=== PATIENT | male | born 2000 | race Caucasian/White ===

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

== ENCOUNTER 2022-03-07 01:17 | Emergency (ER) | payer SELFPAY ==
[2022-03-07 01:19] VITALS: BP 147/87; PULSE 102; RESP 17; TEMP 36.8; O2SAT 99; BMI 21.9
--- NOTE | 2022-03-07 01:42 | HMH.EDWNDL ---
ED Disposition Clinical Impression: Scalp laceration Qualifiers: Encounter type: initial encounter Qualified Code(s): S01.01XA - Laceration without foreign body of scalp, initial encounter Disposition: Home, Self-Care Condition on Discharge: Good Instructions: DI for Laceration Repair Additional Instructions: suture out 7-8 days and recheck if needed Referrals: Provider,Referral, [Primary Care Provider] - - Critical Care Critical Care Time: No Attestation: On 03/07/22, the high probability of a clinically significant, sudden or life threatening deterioration of the following system(s) required my full and direct attention, intervention and personal management. The time I documented below is in addition to time spent performing reported procedures but includes the following listed in this critical care notation. Medical Decision Making - Medical Records Medical records reviewed: Yes: I reviewed the patient's medical records. - Benny Inquiry Pt receiving controlled substance: No Vital Signs: 03/07/22 01:19 Temperature 98.3 F Temperature Source Oral Pulse Rate [Right] 102 H Respiratory Rate 17 Blood Pressure [Right Arm] 147/87 H Blood Pressure Mean [Right Arm] 107 Blood Pressure Source [Right Arm] Automatic Cuff 02 Sat by Pulse Oximetry 99 Oxygen Delivery Method Room Air Orders (Tests/Meds): ED MEDICATIONS Discontinued Medications Generic Name Dose Route Start Last Admin Trade Name Freq PRN Reason Stop Dose Admin Lidocaine HCl 10 ml 03/07/22 01:39 03/07/22 01:40 Lidocaine 1% 10ml Mdv SQ 03/07/22 01:40 10 ml ONCE ONE Administration Medical Decision Narrative: stable exam and no ct head indicated Wound/Laceration HPI - General Chief Complaint: Wound/Laceration Stated Complaint: AO 03/07/22 0100 Fell laceration left side of head Time Seen by Provider: 03/07/22 01:42 Mode of Arrival: Wheelchair Source of Information: Patient, Parent(s), Medical Record Limitations: No Limitations Description of Symptoms (Recalled from ER Triage Doc. by RN): Pt fell back and hit his head on a dresser and sustained and laceration to the back of his head. States he had been drinking and celebrating his birthday. Denies LOC from the fall. Denies any pain at this time. Denies any significant PMH. - History of Present Illness HPI narrative: fall with lt sided scalp lac - no loc Onset (ago): hour(s) Location: scalp Place: home Patient tetanus UTD: Yes Context: fall Associated symptoms: none - Related Data Home Medications Medication Instructions Recorded Confirmed No Known Home Medications 09/26/19 09/26/19 Allergies Allergy/AdvReac Type Severity Reaction Status Date / Time Penicillins [PENICILLINS] Allergy Unknown Verified 09/26/19 16:[address] [facility] History - Hepatitis A Screen Attestation statement:: This patient has been screened for Hepatitis A risk factors. I have reviewed the patient's past medical history: Yes Medical History: Denies:: Diabetes Mellitus Type 1, Diabetes Mellitus Type 2, Hypertension Other Medical History: Reports: Sinus Problems Other Surgeries: Yes: No Previous Surgery, Other Amputation: No Fractures: No Comment: Dental surgery - Social History Smoking Status: Former smoker Tobacco Type: e-cigarettes Alcohol Intake: never Alcohol Intake Frequency:: other Substance Use Type: denies use Occupational Status: student Housing: house Household Members: family Family Hx:: Diabetes, Hyperlipidemia, Hypertension ROS Obtained: Yes All systems reviewed & no additional complaints - Constitutional Constitutional: Denies fever(s) - Eyes Eyes: Denies change in vision - ENT Ears, Nose, Mouth, and Throat: Denies sore throat - Cardiovascular Cardiovascular: Denies chest pain - Respiratory Respiratory: Denies shortness of breath - Gastrointestinal Gastrointestingal: Denies: abdominal pain - Genitourinary Male Genitourinary:
[2022-03-07 04:22] VITALS: BP 133/71; PULSE 87; RESP 18; TEMP 36.8; O2SAT 97
== END 2022-03-07 01:58 | disposition home or self-care (01) ==
PROVIDERS: Emergency Provider Emergency Medicine
DX: S01.01XA Laceration without foreign body of scalp, initial encounter (principal)
CPT/HCPCS: 12001; 99283

== ENCOUNTER 2022-07-05 09:01 | Emergency (ER) | payer OTHER, SELFPAY ==
--- NOTE | 2022-07-05 10:17 | EXP.UTC ---
Discharge Plan Disposition Patient Disposition: Home, Self-Care Condition: Good Prescriptions Prescriptions: New methylprednisolone 4 mg Tablets,Dose Pack 4 mg PO DIRECTED Qty: 21 0RF [id number] [Bromfed DM] 2-30-10 mg/5 mL Syrup 5 ml PO Q6H PRN (Reason: Cough) Qty: 240 0RF cefdinir 300 mg capsule 300 mg PO BID Qty: 20 0RF Referrals Follow up/Referrals: Tim Boogie MD [Primary Care Provider] - See instructions Activity Restrictions/Add. Instructions Additional Instructions/Restrictions: Drink plenty of fluids. Take tylenol or ibuprofen for pain or fever. Take the medications as directed. Follow up with your regular doctor. GO TO THE ER FOR ANY WORSENING SYMPTOMS Throw your tooth brush away and get a new one. Clinical Impressions Clinical Impression: Strep throat Stand Alone Forms Stand Alone Forms: Work/School Release Instructions Patient Instructions: Strep Throat, DI for Strep Throat Discharge ED Provider: Isiah Gutiérrez [facility] General Stated complaint: sore throat, blisters on throat Time Seen by Provider: 07/05/22 10:17 History of Present Illness Provider Complaint: He states that f0r the past 2 days he has had a worsening sore throat, chills, fever and malaise. Related Data Previous Rx's Medication Instructions Recorded ijvxbwlingibpau-pmyfzxfowvjwckh-LG 5 ml PO Q6H PRN Cough #240 mL 07/05/22 2 mg-30 mg-10 mg/5 mL oral syrup (Bromfed DM) cefdinir 300 mg capsule 300 mg PO BID #20 caps 07/05/22 methylprednisolone 4 mg tablets in 4 mg PO DIRECTED #21 tabs 07/05/22 a dose pack Allergies Allergy/AdvReac Type Severity Reaction Status Date / Time Penicillins [PENICILLINS] Allergy Unknown Verified 07/05/22 10:33 [facility] Social History Smoking Status: Former smoker alcohol intake: never substance use type: denies use current occupational status: student Travel in the last 8 weeks: None household members: family housing: house ROS Obtained: Yes All systems reviewed & no additional complaints except as documented Constitutional Constitutional: Reports chills and Reports fever(s) Eyes Eyes: Denies eye discharge ENT Ears, Nose, Mouth, and Throat: Reports as per HPI Cardiovascular Cardiovascular: Denies chest pain Respiratory Respiratory: Denies chest congestion and Reports cough Gastrointestinal Gastrointestingal: Reports nausea; Denies abdominal pain, constipation, cramping, diarrhea or vomiting Musculoskeletal Musculoskeletal: Denies arthralgias Integumentary/Breasts Skin/Breast: Denies rash Neurologic Neurologic: Denies paresthesias Physical Exam General General appearance: alert and in no apparent distress Head Head exam: atraumatic, normocephalic and normal inspection Eye Eye exam: Present normal appearance, PERRL and EOMI ENT ENT exam: Present mucous membranes moist and normal external ear exam Expanded ENT Exam TM/Canal exam: Bilateral TM: erythema and bulging Nose exam: Absent sinus tenderness Mouth exam: Present normal external inspection; Absent drooling Teeth exam: Present normal inspection Throat exam: Present tonsillar erythema, tonsillomegaly and tonsillar exudate Neck Neck exam: Present normal inspection, full ROM and trachea midline; Absent tenderness, meningismus or lymphadenopathy Chest Chest inspection: Present normal inspection and symmetric chest wall rise; Absent tenderness Respiratory Respiratory exam: Present normal lung sounds bilaterally; Absent respiratory distress, wheezes or stridor Cardiovascular Cardiovascular exam: Present regular rate and normal rhythm; Absent systolic murmur or diastolic murmur Abdominal Exam Abdominal exam: Present soft and normal bowel sounds; Absent distention, tenderness, guarding, rebound or rigidity Extremities Exam Extremities exam: Present normal inspection and normal capillary refill; Absent c
[2022-07-05 10:30] LABS: UTC Influenza A Antigen Negative (Negative); UTC Strep Screen (Rapid) Positive (Negative)
[2022-07-05 10:31] VITALS: BP 108/78; PULSE 80; RESP 13; TEMP 36.8; O2SAT 97; BMI 21.9
[2022-07-05 10:31] LABS: UTC Influenza B Antigen Negative (Negative)
[2022-07-05 10:47] VITALS: BP 0/0; PULSE 65; RESP 18; TEMP 37.1
== END 2022-07-05 10:47 | disposition home or self-care (01) ==
PROVIDERS: Emergency Provider Nurse Practitioner Family; PCP Family Medicine
DX: J02.0 Streptococcal pharyngitis (principal)
CPT/HCPCS: 87804; 87880; 99212; G0463

== ENCOUNTER 2024-05-03 08:48 | Outpatient (CLI) | payer OTHER, SELFPAY ==
--- NOTE | 2024-05-03 08:50 | US_ITS ---
FINAL REPORT CLINICAL HISTORY: RUQ PAIN COMPARISON: None FINDINGS: Sonographic images of the right upper quadrant were obtained. The pancreas is partially obscured.The liver has an unremarkable appearance. There are echogenic nonshadowing foci within the lumen of the gallbladder, favor polyps. There is no evidence of biliary ductal dilatation.The common duct measures 4mm. Limited images of the right kidney are unremarkable. IMPRESSION: Echogenic nonshadowing foci within the gallbladder, favor polyps. Follow-up ultrasound may be helpful for further evaluation. Reviewed, Interpreted and Dictated by Ravindra Natarajan III, MD Transcribed by Anamaria Salvador Authenticated and [facility]
== END 2024-05-03 23:59 | disposition home or self-care (01) ==
LOC: RAD 08:48
PROVIDERS: PCP Nurse Practitioner; Visit Provider Nurse Practitioner
DX: R10.11 Right upper quadrant pain (principal)
CPT/HCPCS: 76705

== ENCOUNTER 2024-05-05 13:52 | Emergency (ER) | payer OTHER, SELFPAY ==
[2024-05-05 13:54] VITALS: BP 162/92; PULSE 87; RESP 18; TEMP 36.8; O2SAT 99; BMI 24.4
--- NOTE | 2024-05-05 14:07 | ED_ITS ---
<Statement entered by Chente Hogan MD - 05/05/24 18:20> I was consulted by the JENNA, and we discussed the complexity of the problems being addressed. I approved the treatment and management plan for this patient's care in the emergency department, thus performing a substantive portion of the medical decision making. Chente Hogan MD Discharge Plan Disposition Patient Disposition: Home, Self-Care Condition: Good Prescriptions Prescriptions: New prednisone 50 mg tablet 50 mg PO DAILY 5 Days Qty: 5 0RF albuterol sulfate 90 mcg/actuation HFA aerosol inhaler 1 inh inhalation Q4H PRN (Reason: shortness of breath or wheezing) Qty: 18 0RF doxycycline hyclate 100 mg capsule 100 mg PO BID 10 Days Qty: 20 0RF No Action methylprednisolone 4 mg Tablets,Dose Pack 4 mg PO DIRECTED Qty: 21 0RF vobksqcbjgylozf-rjvcbeyei-MS [Bromfed DM] 2-30-10 mg/5 mL Syrup 5 ml PO Q6H PRN (Reason: Cough) Qty: 240 0RF cefdinir 300 mg capsule 300 mg PO BID Qty: 20 0RF Referrals Follow up/Referrals: Pam Duffy APRN [Primary Care Provider] - See instructions Clinical Impressions Clinical Impression: Right lower lobe pneumonia Qualifiers: Pneumonia type: due to unspecified organism Qualified Code(s): J18.9 - Pneumonia, unspecified organism Costochondral separation Qualifiers: Encounter type: initial encounter Qualified Code(s): S23.29XA - Dislocation of other parts of thorax, initial encounter Instructions Patient Instructions: DI for Pneumonia -- Adult Print Language Print Language: Qatari Discharge ED Provider: Chente Hogan General Adult HPI General Chief complaint: PAIN Stated complaint: ribs pain Time Seen by Provider: 05/05/24 14:07 History of Present Illness HPI narrative: Patient presents for evaluation of the left chest wall pain. Patient has had a cough for approximately a month. He did see his PCP and was placed on azithromycin and Tessalon Perles with some improvement briefly. But during that initial phase with hard cough developed pain in the left anterior chest wall. He saw chiropractor who diagnosed him with a rib out of place and reportedly repositioned it. He did improve however this morning he had a very hard cough and felt a sharp pain and reports it is difficult to breathe due to the pain. He actually has no cardiac like chest pain fever chills hemoptysis hematochezia melena nausea vomiting diarrhea. He does smoke and vape. Related Data Previous Rx's ?Medication ?Instructions ?Recorded pppqtvoktfwzrzg-ufolgzilqozkchq-HQ 5 ml PO Q6H PRN Cough #240 mL 07/05/22 2 mg-30 mg-10 mg/5 mL oral syrup (Bromfed DM) cefdinir 300 mg capsule 300 mg PO BID #20 caps 07/05/22 methylprednisolone 4 mg tablets in 4 mg PO DIRECTED #21 tabs 07/05/22 a dose pack albuterol sulfate 90 mcg/actuation 1 inh inhalation Q4H PRN shortness 05/05/24 aerosol inhaler of breath or wheezing #18 grams doxycycline hyclate 100 mg capsule 100 mg PO BID 10 days #20 caps 05/05/24 prednisone 50 mg tablet 50 mg PO DAILY 5 days #5 tabs 05/05/24 Allergies Allergy/AdvReac Type Severity Reaction Status Date / Time Penicillins [PENICILLINS] Allergy Unknown Verified 07/05/22 10:33 [facility] Disclaimer: The information contained in this section may have been updated after the patient was seen, as this information can be updated by other users. Social History Smoking Status: Never smoker alcohol intake: never substance use type: denies use current occupational status: student Travel in the last 8 weeks: None household members: family housing: house ROS Obtained: Yes Systems reviewed as appropriate & no additional complaints except as documented Physical Exam General General appearance: alert and in no apparent distress Respiratory Respiratory exam: Present normal lung sounds bilaterally Cardiovascular Cardiovascular exam: Present regular rate Neurological Exam Neurological exam: Present alert and oriented X3 Medical Decision Making Benny Inquiry Pt receiving controlled substance: No Vital Signs: 05/05/24 13:54 05/05/24 14:30 05/05/24 15:00 Temperature 98.3 F Temperature Source Oral Pulse Rate 71 Pulse Rate [Right] 87 Respiratory Rate 18 Blood Pressure 131/89 134/95 H Blood Pressure [Right Arm] 162/92 H Blood Pressure Mean 98 101 Blood Pressure Mean [Right Arm] 115 02 Sat by Pulse Oximetry 99 99 Oxygen Delivery Method Room Air Orders (Tests/Meds): ED MEDICATIONS Discontinued Medications Generic Name Dose Route Start Last Admin Trade Name Skyler PRN Reason Stop Dose Admin Acetaminophen 1,000 mg 05/05/24 15:35 Acetaminophen 500mg Tab PO 05/05/24 15:36 ONCE ONE Ibuprofen 800 mg 05/05/24 15:35 Ibuprofen 400 Mg Tablet PO 05/05/24 15:36 ONCE ONE ORDERS Category Date Time Status Chest XR 2 view (NOT portable) [XR chest 2V] Stat Exams 05/05/24 14:19 Completed Medical Decision Narrative: In summary patient is a 24-year-old male who presents to the emergency department for evaluation of left chest wall pain and cough. Patient is hemodynamically stable upon arrival, afebrile satting at 99% on room air breathing 18 times a minute. Physical exam is remarkable for tenderness to palpation in the left anterior chest wall in the anterior axillary line below the nipple. There is no palpable bony deformity or deformity of any kind, ecchymosis contusions or abrasions. Breath sounds are clear and equal bilaterally to the bases without adventitious sounds.. Differential diagnosis includes costochondral separation versus rib fracture versus pneumonia etc. Initial workup will be conducted with plain film chest x-ray. Initial interventions include Tylenol and Motrin. Initial workup reviewed by me and my informal to rotation of his plain film chest x-ray shows no acute pneumo or pneumonia on the left side however has evidence of right lower lobe pneumonia. Upon repeat evaluation patient reported improvement after initial intervention w ith his pain. Given this patient is appropriate for discharge with recommendations to continue Tylenol alternating with Motrin, steroid Dosepak and doxycycline. First dose of doxycycline given here. Critical Care Critical Care Time Critical Care Time: No
--- NOTE | 2024-05-05 14:19 | XR_ITS ---
PROCEDURE INFORMATION: Exam: XR Chest Exam date and time: 05/05/2024 2:43 PM Age: 24 years old Clinical indication: Cough; Additional info: Cough for a month, left chest wall pain TECHNIQUE: Imaging protocol: Radiologic exam of the chest. Views: 2 views. COMPARISON: CR CXR2V XR chest 2V 09/18/2017 3:14 PM FINDINGS: Lungs: Unremarkable. No consolidation. Pleural spaces: Unremarkable. No pleural effusion. No pneumothorax. Heart/Mediastinum: Unremarkable. No cardiomegaly. Bones/joints: Unremarkable. IMPRESSION: No acute findings.
[2024-05-05 14:30] VITALS: BP 131/89
[2024-05-05 15:00] VITALS: BP 134/95; PULSE 71; O2SAT 99
[2024-05-05] MEDS: IBUPROFEN 400 MG TABLET 800 MG PO (15:48)
[2024-05-05] MEDS: ACETAMINOPHEN 500MG TAB 1000 MG PO (15:48)
[2024-05-05] MEDS: DOXYCYCLINE HYCL 100 MG TABLET PO (15:49)
[2024-05-05 15:55] VITALS: BP 125/86; PULSE 93; RESP 16; TEMP 36.7; O2SAT 97
== END 2024-05-05 16:00 | disposition home or self-care (01) ==
PROVIDERS: Emergency Provider Emergency Medicine; PCP Nurse Practitioner
DX: J18.9 Pneumonia, unspecified organism (principal); R07.81 Pleurodynia
CPT/HCPCS: 71046; 99283

== ENCOUNTER 2024-05-16 10:09 | Outpatient (CLI) | payer OTHER, SELFPAY ==
--- NOTE | 2024-05-16 | NM_ITS ---
FINAL REPORT CLINICAL HISTORY: RUQ PAIN AND DIARRHEA 10:40 am 8.06 [facility] tc choletec 1.7 mcg of cck pain during cck COMPARISON: None FINDINGS: Sequential anterior projection images of the abdomen were obtained after the intravenous injection of 8.06 mCi technetium 99m Choletec. There is normal uptake of radiotracer by the liver. The bile ducts are visualized by 10 minutes. Gallbladder activity is seen by 10 minutes. Bowel activity is noted by 5 minutes. After 1 hour, 1.7 ?g of CCK was injected intravenously for calculation of gallbladder ejection fraction. The gallbladder ejection fraction is 91%, which is within normal limits. IMPRESSION: No evidence of cystic duct or bile duct obstruction. Normal gallbladder ejection fraction of 91%. Reviewed, Interpreted and Dictated by Renetta Grier MD Transcribed by Anamaria Salvador Authenticated and [facility]
[2024-05-16] MEDS: SINCALIDE 1.7 MCG in 0.9 % SODIUM CHLORIDE 50 ML 100 MCG IV (12:12)
[2024-05-16] MEDS: SODIUM CHLORIDE 0.9% 10ML SYR (RAD ONLY) 10 ML IV (12:13)
[2024-05-16] MEDS: ISOTOPE CHOLETECH;1 DOSE (UP TO 15 MCI) IV (12:13)
== END 2024-05-16 23:59 | disposition home or self-care (01) ==
LOC: RAD 10:10
PROVIDERS: PCP Nurse Practitioner; Visit Provider Nurse Practitioner
DX: R10.11 Right upper quadrant pain (principal); R19.7 Diarrhea, unspecified
CPT/HCPCS: 78227; A9537; J2805

== ENCOUNTER 2024-11-02 11:21 | Outpatient (CLI) | payer OTHER, SELFPAY ==
[2024-11-02 12:19] LABS: Adenovirus F 40/41, stool Not Detected (NotDetected); Astrovirus Not Detected (NotDetected); Campylobacter Not Detected (NotDetected); Clostridium Difficile A/B, PCR Not Detected (NotDetected); Cryptosporidium Not Detected (NotDetected); Cyclospora Cayetanesis Not Detected (NotDetected); Entamoeba histolytica Not Detected (NotDetected); Enteroaggregative E coli Not Detected (NotDetected); Enteropathogenic E coli Not Detected (NotDetected); Enterotoxigenic E coli Not Detected (NotDetected); Norovirus Not Detected (NotDetected); Plesimonas Shigalloides, PCR Not Detected (NotDetected); Rotavirus A Not Detected (NotDetected); Salmonella, PCR Not Detected (NotDetected); Sapovirus Not Detected (NotDetected); Shiga-like toxin E coli Not Detected (NotDetected); Shigella Enterovasive E coli Not Detected (NotDetected); Vibrio Cholerae Not Detected (NotDetected); Vibrio, PCR Not Detected (NotDetected); Yersinia Entercolitica, PCR Not Detected (NotDetected)
[2024-11-02 15:55] LABS: Giardia lamblia Detected (NotDetected)
== END 2024-11-02 23:59 | disposition home or self-care (01) ==
LOC: LAB 11:24
PROVIDERS: PCP Nurse Practitioner; Visit Provider Nurse Practitioner
DX: R19.7 Diarrhea, unspecified (principal)
CPT/HCPCS: 87507